=== PATIENT | female | born 1955 | race Caucasian/White ===

== ENCOUNTER 2016-11-14 07:08 | Day surgery (SDC) | payer BC ==
[2016-11-11 11:17] LABS: PFA (COL/EPI) 94 SEC (72-180)
[2016-11-11 11:20] LABS: BASOPHILS 0.3 %; BASOPHILS ABSOLUTE 0.02 10/3/uL (0.0-0.16); EOSINOPHILS 1.2 %; EOSINOPHILS ABSOLUTE 0.08 10/3/uL (0.0-0.53); HEMATOCRIT 41.3 % (36.0-48.0); HEMOGLOBIN 13.6 g/dL (12.0-16.0); IMMATURE GRANULOCYTES 0.1 %; IMMATURE GRANULOCYTES ABSOLUTE 0.01 10/3/uL (0.0-0.11); LYMPHOCYTES 31.8 %; LYMPHOCYTES ABSOLUTE 2.14 10/3/uL (0.67-4.30); MEAN CORPUS HGB CONC 32.9 g/dL (32.0-36.0); MEAN CORPUSCULAR HEMOGLOB 29.3 pg (26.0-34.0); MEAN PLATELET VOLUME 10.7 fL (9.2-13.0); MONOCYTES 5.4 %; MONOCYTES ABSOLUTE 0.36 10/3/uL (0.21-1.20); NEUTROPHILS 61.2 %; NEUTROPHILS ABSOLUTE 4.11 10/3/uL (2.02-8.40); PLATELET COUNT 219 10/3/uL (150-400); RBC DISTRIBUTION WIDTH 14.3 % (12.0-16.0); RED CELL COUNT 4.64 10/6/uL (4.0-5.6); WHITE BLOOD CELLS 6.7 10/3/uL (4.5-10.5)
[2016-11-11 11:24] LABS: MANUAL DIFF NO %
[2016-11-11 11:32] LABS: CALCIUM, SERUM 9.1 MG/DL (8.5-10.4); CHLORIDE, SERUM 106 MMOL/L (96-112); CO2 (CARBON DIOXIDE) 29 MMOL/L (24-34); GFR AFRICAN AMERICAN 80 ML/MIN (>=60); GFR NON AFRICAN AMERICAN 69 ML/MIN (>=60); POTASSIUM, SERUM 3.9 MMOL/L (3.5-5.3); SODIUM, SERUM 140 MMOL/L (135-148)
[2016-11-11 11:33] LABS: BUN (BLOOD UREA NITROGEN) 17 MG/DL (6-23); GLUCOSE, SERUM 128 MG/DL (60-99)
[2016-11-11 13:30] LABS: ASCORBIC ACID (UR NOT ORDER) NEG (NEG); BILIRUBIN, URINE NEGATIVE (NEG); KETONE, URINE NEGATIVE (NEG); LEUKOCYTE ESTERASE(NOT OR LARGE (NEG); WBC (NOT ORDERED) (RFLEX) 30 (0-5)
[~2016-11-14] VITALS: Ht 165.1 cm; Wt 108.9 kg
--- NOTE | ~2016-11-14 | OP ---
Record Of Operation [facility] [address] [place]. [address] NAME: KRYSTYNA SKINNER : 53 STATUS : REG [facility]#: [id number] AGE: 60 ADM/REG DATE : 11/14/16 MR#: [id number] REPORT SERV DATE: 11/14/16 DICTATED BY: JACK FERRERA DATE: 11/14/16 REPORT STATUS : Draft TRANSCRIBED BY: JUAN DATE: 11/14/16 DATE OF PROCEDURE: 11/14/2016 PREOPERATIVE DIAGNOSIS: Right renal stone. POSTOPERATIVE DIAGNOSIS: Right renal stone. PROCEDURE: Right ESWL. ANESTHESIA: MAC. SPECIMENS: None. ESTIMATED BLOOD LOSS: None. DISPOSITION: To Day Surgery in good condition. HISTORY: 60-year-old woman, who presented to me with right renal stone located in the area of the renal pelvis. 5 mm in size. Today it is across from the L1-L2 interspace. She presents today for treatment. PROCEDURE IN DETAIL: After consent was obtained, the patient was taken to the Dornier II lithotripsy machine, and placed on the machine in supine position. Her stone was located on two planes. MAC anesthetic was induced. She then received 2500 shocks at a maximum energy level of 5 and rate of 90 from the anterior position, tolerated the procedure well, and was taken to the Day Surgery in good condition. Plan will be to send her home today with followup in two to three weeks with a KUB. All of her preoperative medication prescriptions were given to her at her office visit. STIVEN/JUAN Jack Ferrera M.D. / [id number] CC: Calixto Garcia M.D.
[~2016-11-14 07:08] MED LIST: AMOX250 PO; BENTYL10 PO; CIP5 PO; DIL2TAB PO; GLUCPH PO; HIPREX1 GM PO; JUBLIA TOP; MACRO50B PO; MACROBID PO; NORV25 PO; PCET PO; PERCOCET1 TA4 PO; PR25 PO; PROBIOTIC PO; PROTONIX PO; PYR200 PO; SPIRO25 PO; VESICARE5 PO; [UNRECOGNIZED DRUG - OTHER]
== END 2016-11-14 11:49 | disposition home or self-care (01) ==
LOC: SDC 07:08
PROVIDERS: Urology
DX: N20.0 Calculus of kidney (principal); I10 Essential (primary) hypertension; K21.9 Gastro-esophageal reflux disease without esophagitis; E66.9 Obesity, unspecified; Z68.39 Body mass index [BMI] 39.0-39.9, adult; Z88.2 Allergy status to sulfonamides; Z88.8 Allergy status to other drugs, medicaments and biological substances; Z88.1 Allergy status to other antibiotic agents
CPT/HCPCS: 50590; 74000; 80048; 81001; 85025; 85576; 87086; 93005; J2250; J2405; J3010